=== PATIENT | male | born 1990 | race Caucasian/White ===

== ENCOUNTER 2021-08-17 01:04 | Emergency (ER) | payer MEDICAID ==
[~2021-08-17] VITALS: Ht 172.7 cm; Wt 68.0 kg
[2021-08-17 01:19] VITALS: BP 111/73
--- NOTE | 2021-08-17 01:22 | NUR ---
TO LOBBY A/W BED AMBULATORY
--- NOTE | 2021-08-17 02:50 | NUR ---
ASSUMED CARE OF PATIENT AT THIS TIME. REPORTS POSSIBLE SPIDER BITE TO LEFT LEG. REDNESS TO LEFT LEG WITH SWELLING AND REDNESS TRAVELING UP TO LEFT GROIN AREA NOTED. ONSET OF X2 DAYS. PAIN TO GENREAL UPPER LEFT LEG
--- NOTE | 2021-08-17 02:50 | NUR ---
PT AMBULATED TO BED 7
--- NOTE | 2021-08-17 03:52 | NUR ---
ER MD AT BEDSIDE/
[2021-08-17] MEDS ORDERED: CLIN300C52 PO (03:56)
--- NOTE | 2021-08-17 04:03 | NUR ---
Patient discharged with v/s stable. Written and verbal after care instructions given and explained. Patient verbalized understanding. Ambulatory with steady gait. All questions addressed prior to discharge. Advised to follow up with PMD.
[2021-08-17 04:04] VITALS: BP 129/74
== END 2021-08-17 04:03 | disposition home or self-care (01) ==
LOC: MED 01:04
DX: L03.116 Cellulitis of left lower limb (principal)
CPT/HCPCS: 99281